=== PATIENT | male | born 1985 | race Caucasian/White ===

== ENCOUNTER 2022-10-31 22:03 | Inpatient (IN) | payer OTHER ==
[2022-10-31] MEDS ORDERED: MAG HYDROX/AL HYDROX/SIMETH 30 ML UNIT-DOSE CUP PO ONE (23:13)
[2022-10-31] MEDS ORDERED: FAMOTIDINE 10 MG TABLET PO ONE (23:14)
[2022-10-31] MEDS ORDERED: FAMOTIDINE 20 MG TABLET ONE (23:36)
[2022-10-31 23:52] LABS: BASO % 0.5 % (0-2.0); EOS % 2.6 % (0-4.5); HEMATOCRIT 44.5 % (35.4-49); HEMOGLOBIN 15.2 GM/dL (11.7-16.9); LYMPH % 17.6 % (8-40); MCH 32.1 pg (25.7-33.7); MCHC 34.2 g/dl (32.0-35.9); MEAN CELL VOLUME 93.9 fl (80-96); MONO % 9.9 % (3.8-10.2); NEUT % 69.4 % (42.8-82.8); PLATELET COUNT 241 10^3/uL (134-434); RBC 4.74 M/mm3 (4.00-5.60); RDW 13.4 % (11.9-15.9); WHITE BLOOD COUNT 10.5 K/mm3 (4.0-10.0)
[2022-11-01 01:32] LABS: POTASSIUM 3.8 mmol/L (3.5-5.1)
[2022-11-01 01:34] LABS: CALCIUM 9.1 mg/dL (8.5-10.1)
[2022-11-01 01:35] LABS: ALBUMIN 3.7 g/dl (3.4-5.0); BLOOD UREA NITROGEN 19.7 mg/dL (7-18)
[2022-11-01 01:38] LABS: CREATININE 1.2 mg/dL (0.55-1.3)
[2022-11-01 01:40] LABS: BILIRUBIN,TOTAL 0.6 mg/dL (0.2-1); TOT PROT 7.3 g/dl (6.4-8.2)
[2022-11-01] MEDS ORDERED: ACETAMINOPHEN 1000 MG/100 ML BAG IVPB ONE ×2 (02:16→05:58)
[2022-11-01] MEDS ORDERED: ACETAMINOPHEN INJECTION 100 ML IVPB ONE ×2 (02:34→06:20)
[2022-11-01 07:07] LABS: INR 1.02 (0.83-1.09); PROTHROMBIN TIME (PATIENT) 11.8 SEC (9.7-13.0)
[2022-11-01 07:10] LABS: ACTIVATED PTT 31.4 SECONDS (25.2-36.5)
[2022-11-01] MEDS ORDERED: BUPIVACAINE HCL/PF 0.25% (2.5MG/ML) 10 ML VIAL ONE (08:38)
[2022-11-01] MEDS ORDERED: cefOXitin SODIUM 2 GM VIAL (RESTRICTED TO ID) IVPB ONE ×2 (08:38→09:20)
[2022-11-01] MEDS ORDERED: ROCURONIUM BROMIDE 50 MG/5 ML SYRINGE ONE (08:58)
[2022-11-01] MEDS ORDERED: MIDAZOLAM HCL 2 MG/2 ML SINGLE DOSE VIAL ONE (08:58)
[2022-11-01] MEDS ORDERED: SUCCINYLCHOLINE CHLORIDE 200 MG/10 ML SYRINGE ONE (08:58)
[2022-11-01] MEDS ORDERED: PROPOFOL 20 ML ONE (08:58)
[2022-11-01] MEDS ORDERED: BUPIVACAINE HCL/PF 0.25% (2.5MG/ML) 10 ML VIAL IJ ONE (09:35)
[2022-11-01] MEDS ORDERED: NEOSTIGMINE METHYLSULFATE 0.5 MG/1 ML - 10 ML MDV ONE (09:58)
[2022-11-01] MEDS ORDERED: PROMETHAZINE HCL 25 MG/1 ML VIAL IVPB PRN ×2 (10:33→10:50)
[2022-11-01] MEDS ORDERED: LACTATED RINGERS SOLUTION 1,000 ML IV SCH (10:45)
[2022-11-01] MEDS: LACTATED RINGERS SOLUTION 1,000 ML IV SCH (10:51)
[2022-11-01] MEDS ORDERED: oxyCODONE HCL 5 MG TABLET PO PRN ×2 (10:51)
[2022-11-01] MEDS: DOCUSATE SODIUM 100 MG CAPSULE (FP) PO SCH ×2 (14:07→22:33)
[2022-11-01 14:22] VITALS: BMI 33.4
[2022-11-02] MEDS: DOCUSATE SODIUM 100 MG CAPSULE (FP) PO SCH ×2 (05:54→15:21)
[2022-11-02 09:47] LABS: BASO % 0.2 % (0-2.0); EOS % 0.7 % (0-4.5); HEMATOCRIT 40.9 % (35.4-49); HEMOGLOBIN 14.1 GM/dL (11.7-16.9); LYMPH % 25.9 % (8-40); MCH 32.4 pg (25.7-33.7); MCHC 34.4 g/dl (32.0-35.9); MEAN CELL VOLUME 94.2 fl (80-96); MEAN PLT VOLUME 9.1 fl (7.5-11.1); NEUT % 65.2 % (42.8-82.8); PLATELET COUNT 225 10^3/uL (134-434); RBC 4.34 M/mm3 (4.00-5.60); RDW 13.3 % (11.9-15.9)
[2022-11-02 10:10] LABS: POTASSIUM 3.9 mmol/L (3.5-5.1)
[2022-11-02 10:20] LABS: CALCIUM 8.7 mg/dL (8.5-10.1)
[2022-11-02 10:21] LABS: ALBUMIN 3.2 g/dl (3.4-5.0); BLOOD UREA NITROGEN 10.3 mg/dL (7-18)
[2022-11-02 10:24] LABS: CREATININE 0.8 mg/dL (0.55-1.3)
[2022-11-02 10:26] LABS: TOT PROT 6.8 g/dl (6.4-8.2)
[2022-11-02] MEDS: LACTATED RINGERS SOLUTION 1,000 ML IV SCH (11:33)
[2022-11-02 13:38] VITALS: BP 110/70; PULSE 64; RESP 18; TEMP 98.4
== END 2022-11-02 17:00 | disposition home or self-care (01) | DRG 263 ==
LOC: JER 22:03 → JERBED 11-01 06:02 → INTOOBSV 11-01 06:02 → UNDOADMOB 11-01 06:02 → JERBED 11-01 09:46 → J8W 11-01 12:40 → OBSVTOIN 11-01 15:52
PROVIDERS: ADMIT Internal Medicine; ATTEND Nurse Practitioner Family
PROC: 0FT44ZZ Resection of Gallbladder, Percutaneous Endoscopic Approach (ICD-10-PCS; principal; 2022-11-01 09:30)
DX: K80.10 Calculus of gallbladder with chronic cholecystitis without obstruction (principal); E66.9 Obesity, unspecified; Z68.33 Body mass index [BMI] 33.0-33.9, adult
CPT/HCPCS: 36415; 76705-TC; 80053; 83690; 85025; 85610; 85730; 86850; 86900; 86901; 88304-TC; 93005; 93010; 94760; 99285-25; G0378